=== PATIENT | male | born 1965 | race Two or more races ===

== ENCOUNTER → 2018-03-12 | Outpatient (CLI) | payer MEDICAID | END | disposition home or self-care (01) | LOC: Rad HDHVI 15:58 | PROVIDERS: ATTEND Internal Medicine Cardiovascular Disease | DX: I10 Essential (primary) hypertension (principal); R07.89 Other chest pain; E78.5 Hyperlipidemia, unspecified | CPT/HCPCS: 93306 ==

== ENCOUNTER → 2018-04-29 | Outpatient (CLI) | payer MEDICAID ==
[2018-04-29 10:00] VITALS: BP 110/65
[2018-04-29 10:22] VITALS: BP 123/78
--- NOTE | 2018-04-29 10:22 | NUR ---
PRE-OP BIV AICD FOR 05/01/18 Pre-Op Discharge Summary: See e-MAR for any medications given for this visit. Pre-op orders received and carried out per MD of EKG, LABS. Patient given a copy of EKG with instructions to go to [facility] out patient for CXR AND further follow up care.
[2018-04-29 12:01] LABS: Basophils # (auto) 0 uL; Basophils % (auto) 0.5 % (0.0-2.0); Eosinophils # (auto) 0 uL; Hematocrit 43.7 % (41.0-53.0); Hemoglobin 14.7 g/dL (13.5-17.5); Lymphocytes # (auto) 1.1 uL; Lymphocytes % (auto) 22.1 % (10.0-50.0); Mean Corpuscular Hemoglobin 28.7 pg (28.0-32.0); Mean Corpuscular Hgb Conc. 33.5 g/dL (32.0-36.0); Mean Corpuscular Volume 85.6 fL (80.0-100.0); Monocytes # (auto) 0.3 uL; Monocytes % (auto) 5.5 % (0.0-12.0); Neutrophils # (auto) 3.6 uL; Neutrophils % (auto) 70.9 % (37.0-80.0); Nucleated Red Blood Cells % 0.5 %; Platelet Count (auto) 216 10^3/uL (140-450); Red Blood Cells 5.11 10^6/uL (4.5-5.90); Red Cell Distribution Width 13.7 % (11.8-14.3); White Blood Cell 5.1 10^3/uL (4.4-10.8)
[2018-04-29 12:15] LABS: INR 0.93 (0.9-1.15); Partial Thromboplastin Time 30.5 sec (23.78-33.04)
[2018-04-29 12:17] LABS: Potassium 4.3 mmol/L (3.5-5.1)
[2018-04-29 12:22] LABS: BUN/Creatinine Ratio 21.8
== END | disposition home or self-care (01) ==
LOC: CHF HDHVI 09:42
PROVIDERS: ATTEND Internal Medicine Cardiovascular Disease
DX: Z01.818 Encounter for other preprocedural examination (principal); D64.9 Anemia, unspecified; R79.1 Abnormal coagulation profile; R94.31 Abnormal electrocardiogram [ECG] [EKG]; I11.0 Hypertensive heart disease with heart failure; I50.9 Heart failure, unspecified; I42.0 Dilated cardiomyopathy
CPT/HCPCS: 36415; 80048; 85025; 85610; 85730; 93005; G0463

== ENCOUNTER → 2018-04-30 | Outpatient (CLI) | payer MEDICAID ==
[2018-04-30 14:20] VITALS: BP 109/63
--- NOTE | 2018-04-30 14:20 | NUR ---
Pre-Op Discharge Summary: [facility] FOR SCHEDULED PROCEDURE OF BIV-AICD. PT VERBALIZED UNDERSTANDING
--- NOTE | 2018-04-30 14:20 | NUR ---
[facility] TO [facility]CUSS HIS UPCOMING PROCDURE ON 05/01/18 FOR A BI-VENT AICD. PT EXPRESSED CONCERN ABOUT THE PROCEDURE BECAUSE HE HAS NICHOLAS A COUGH FOR DAYS THAT HE THINKS IS VIRAL. DISCUSSED THE PATIENTS PLAN OF CARE AND CONCERNS. PT DECIDED TO RESCHEDULE FOR 05/15/18.
== END | disposition home or self-care (01) ==
LOC: CHF HDHVI 15:10
PROVIDERS: ATTEND Internal Medicine Cardiovascular Disease
DX: Z01.818 Encounter for other preprocedural examination (principal)
CPT/HCPCS: G0463

== ENCOUNTER 2018-07-27 13:20 | Inpatient (IN) | payer SELFPAY, MEDICAID | END 2018-08-02 14:20 | disposition home or self-care (01) | LOC: ER 13:20 → TELE-CENTR 07-28 09:26 → TELE 21:02 ==

== ENCOUNTER → 2018-09-22 | Outpatient (CLI) | payer MEDICAID ==
[~2018-09-22] MED LIST: ASPI81CH43 PO; ATOR1TAB PO; FURO1TAB33 PO; METO25TA5 PO; SACU1TAB PO
== END | disposition home or self-care (01) ==
LOC: Rad HDHVI 14:54
PROVIDERS: ATTEND Internal Medicine Cardiovascular Disease
DX: I34.0 Nonrheumatic mitral (valve) insufficiency (principal); I42.0 Dilated cardiomyopathy
CPT/HCPCS: 93306

== ENCOUNTER → 2019-04-27 | Outpatient (CLI) | payer MEDICAID | END | disposition home or self-care (01) | LOC: Rad HDHVI 11:39 | PROVIDERS: ATTEND Internal Medicine Cardiovascular Disease | DX: I50.43 Acute on chronic combined systolic (congestive) and diastolic (congestive) heart failure (principal); I51.7 Cardiomegaly; J44.9 Chronic obstructive pulmonary disease, unspecified | CPT/HCPCS: 93306 ==

== ENCOUNTER → 2019-06-26 | Outpatient (CLI) | payer MEDICAID | END | disposition home or self-care (01) | LOC: Rad HDHVI 11:17 | PROVIDERS: ATTEND Internal Medicine Cardiovascular Disease | DX: J34.2 Deviated nasal septum (principal) | CPT/HCPCS: 70486 ==

== ENCOUNTER → 2020-03-18 | Outpatient (CLI) | payer MEDICAID ==
[~2020-03-18] MED LIST changes: +ATOR-47 PO; -ATOR1TAB PO
== END | disposition home or self-care (01) ==
LOC: Rad HDHVI 15:03
PROVIDERS: ATTEND Internal Medicine Cardiovascular Disease
DX: I50.43 Acute on chronic combined systolic (congestive) and diastolic (congestive) heart failure (principal); I42.0 Dilated cardiomyopathy
CPT/HCPCS: 93306

== ENCOUNTER 2020-10-01 11:32 | Inpatient (IN) | payer MEDICAID ==
[~2020-10-01] VITALS: Ht 170.2 cm; Wt 69.0 kg
[2020-10-01] MEDS ORDERED: SODIUM CHLORIDE 0.9% 1,000 ML IV ONE (13:00)
[2020-10-01 13:25] LABS: Basophils # (auto) 0 10 ^3/uL (0-0.2); Basophils % (auto) 0.3 % (0.0-2.0); Eosinophils # (auto) 0 10 ^3/uL (0-0.8); Eosinophils % (auto) 0.2 % (0.0-7.0); Hematocrit 41.4 % (41.0-53.0); Hemoglobin 14.2 g/dL (13.5-17.5); Lymphocytes % (auto) 14.5 % (10.0-50.0); Mean Corpuscular Hemoglobin 28.7 pg (28.0-32.0); Mean Corpuscular Hgb Conc. 34.4 g/dL (32.0-36.0); Mean Corpuscular Volume 83.5 fL (80.0-100.0); Monocytes # (auto) 0.4 10 ^3/uL (0-1.3); Monocytes % (auto) 5.6 % (0.0-12.0); Neutrophils # (auto) 5.6 10 ^3/uL (1.6-8.6); Neutrophils % (auto) 79.4 % (37.0-80.0); Red Blood Cells 4.96 10^6/uL (4.5-5.90); Red Cell Distribution Width 13.9 % (11.8-14.3)
[2020-10-01 13:42] LABS: Albumin 4.3 g/dL (3.4-5.0); Calcium 8.9 mg/dL (8.5-10.1); Magnesium 2.7 mg/dL (1.6-2.6); Potassium 4.3 mmol/L (3.5-5.1)
[2020-10-01 13:50] LABS: BUN/Creatinine Ratio 17.1; Bilirubin, Total 0.6 mg/dL (0.2-1.0); Total Protein 7.7 g/dL (6.4-8.2)
[2020-10-01 13:58] LABS: Urine Bacteria NONE SEEN /hpf (None Seen); Urine Blood Negative /uL (Negative); Urine Specific Gravity 1.016 (1.001-1.035); Urine WBC <1 /hpf (0 - 3)
[2020-10-01 16:23] LABS: INR 0.99 (0.9-1.15); Partial Thromboplastin Time 27.1 sec (23.6-33.0)
[2020-10-01] MEDS ORDERED: MORPHINE SULFATE INJECTION 2 MG/2 ML SYRG IV PRN (16:45)
[2020-10-01] MEDS ORDERED: NITROGLYCERIN 0.4 MG SL TAB SL PRN (16:45)
[2020-10-01] MEDS: METOPROLOL TARTRATE 25 MG TAB PO SCH (23:46)
[2020-10-01] MEDS: FAMOTIDINE 20 MG TAB PO SCH (23:46)
[2020-10-02] VITALS (8 sets, daily range): BP systolic 89–124; BP diastolic 54–72
[2020-10-02] MEDS ORDERED: NICOTINE 21MG/24 HR TOPICAL PATCH TD ONE
[2020-10-02] MEDS: ACETAMINOPHEN 325 MG TAB PO PRN ×3 (00:11→22:52)
[2020-10-02] MEDS: SACUBITRIL-VALSARTAN 24mg/26mg TAB PO SCH (10:05)
[2020-10-02] MEDS: ASPirin 81 mg TAB PO SCH (10:05)
[2020-10-02] MEDS: METOPROLOL TARTRATE 25 MG TAB PO SCH ×2 (10:06→22:00)
[2020-10-02] MEDS: FAMOTIDINE 20 MG TAB PO SCH ×2 (10:06→22:48)
[2020-10-02] MEDS: NICOTINE 21MG/24 HR TOPICAL PATCH TD SCH (10:07)
[2020-10-02] MEDS: CLOPIDOGREL BISULFATE 75 MG TAB PO SCH (10:07)
[2020-10-03] VITALS (9 sets, daily range): BP systolic 101–145; BP diastolic 68–89
[2020-10-03] MEDS: ACETAMINOPHEN 325 MG TAB PO PRN (09:14)
[2020-10-03] MEDS: ASPirin 81 mg TAB PO SCH (09:14)
[2020-10-03] MEDS: SACUBITRIL-VALSARTAN 24mg/26mg TAB PO SCH (09:14)
[2020-10-03] MEDS: CLOPIDOGREL BISULFATE 75 MG TAB PO SCH (09:14)
[2020-10-03] MEDS: FAMOTIDINE 20 MG TAB PO SCH (09:15)
[2020-10-03] MEDS: METOPROLOL TARTRATE 25 MG TAB PO SCH (09:15)
[2020-10-03] MEDS: NICOTINE 21MG/24 HR TOPICAL PATCH TD SCH (09:16)
[2020-10-03] MEDS ORDERED: ANGIOMAX 250 MG VIAL IV ONE (14:54)
[2020-10-03] MEDS ORDERED: LIDOCAINE 2%HCL (LOCAL ANESTH.) INJ 20ML MDV ONE ×2 (14:55→15:24)
[2020-10-03] MEDS ORDERED: SODIUM CHL 0.9% 0 ML ONE (14:55)
[2020-10-03] MEDS ORDERED: MIDAZOLAM HCL 2MG/2ML 2ml VIAL (1mg/ml) ONE (14:55)
[2020-10-03] MEDS ORDERED: IOHEXOL 350 MG/ML 100ML IJ ONE (14:55)
[2020-10-03] MEDS ORDERED: fentaNYL CITRATE 100 MCG/2 ML VL ONE (14:55)
== END 2020-10-03 19:51 | disposition home or self-care (01) | DRG 192 ==
LOC: ER 11:32 → TELE 16:41 → TELE-WESTW 22:40
PROVIDERS: ADMIT Internal Medicine Cardiovascular Disease; ATTEND Internal Medicine Cardiovascular Disease
PROC: B2161ZZ Fluoroscopy of Right and Left Heart using Low Osmolar Contrast (ICD-10-PCS; principal; 2020-10-03)
PROC: B2111ZZ Fluoroscopy of Multiple Coronary Arteries using Low Osmolar Contrast (ICD-10-PCS; 2020-10-03)
DX: R07.89 Other chest pain (principal); I42.0 Dilated cardiomyopathy; I50.42 Chronic combined systolic (congestive) and diastolic (congestive) heart failure; Z20.822 Contact with and (suspected) exposure to COVID-19; F17.210 Nicotine dependence, cigarettes, uncomplicated; Z95.810 Presence of automatic (implantable) cardiac defibrillator; I25.2 Old myocardial infarction
CPT/HCPCS: 36415; 71046; 80053; 81001; 83735; 83880; 84443; 84484; 85025; 85379; 85610; 85730; 87426; 93005; 93458; 96360; 99152; G0378; J2250

== ENCOUNTER → 2020-11-28 | Outpatient (CLI) | payer MEDICAID | END | disposition home or self-care (01) | LOC: Rad HDHVI 15:58 | PROVIDERS: ATTEND Internal Medicine Cardiovascular Disease | DX: I51.7 Cardiomegaly (principal); R07.89 Other chest pain | CPT/HCPCS: 93306 ==

== ENCOUNTER → 2021-10-18 | Outpatient (CLI) | payer MEDICARE, MEDICAID | END | disposition home or self-care (01) | LOC: Rad HDHVI 09:07 | PROVIDERS: ATTEND Internal Medicine Cardiovascular Disease | DX: R07.89 Other chest pain (principal); E78.5 Hyperlipidemia, unspecified | CPT/HCPCS: 93306 ==

== ENCOUNTER → 2022-02-21 | Outpatient (CLI) | payer MEDICARE, MEDICAID ==
[2022-02-21 16:06] LABS: Urine Blood Negative /uL (Negative); Urine Specific Gravity 1.009 (1.001-1.035)
[2022-02-21 16:15] LABS: Basophils # (auto) 0 10 ^3/uL (0-0.2); Basophils % (auto) 0.4 % (0.0-2.0); Eosinophils # (auto) 0 10 ^3/uL (0-0.8); Eosinophils % (auto) 0.5 % (0.0-7.0); Hematocrit 43.6 % (41.0-53.0); Hemoglobin 14.8 g/dL (13.5-17.5); Lymphocytes # (auto) 1.4 10 ^3/uL (0.4-5.4); Lymphocytes % (auto) 21.2 % (10.0-50.0); Mean Corpuscular Hemoglobin 28.6 pg (28.0-32.0); Mean Corpuscular Volume 84.2 fL (80.0-100.0); Monocytes # (auto) 0.4 10 ^3/uL (0-1.3); Monocytes % (auto) 6.1 % (0.0-12.0); Neutrophils # (auto) 4.8 10 ^3/uL (1.6-8.6); Neutrophils % (auto) 71.8 % (37.0-80.0); Nucleated Red Blood Cells % 0.4 %; Red Blood Cells 5.19 10^6/uL (4.5-5.90); Red Cell Distribution Width 14.2 % (11.8-14.3); White Blood Cell 6.7 10^3/uL (4.4-10.8)
[2022-02-21 16:19] LABS: Albumin 4.8 g/dL (3.4-5.0); Calcium 9.2 mg/dL (8.5-10.1)
[2022-02-21 16:25] LABS: BUN/Creatinine Ratio 16.7; Bilirubin, Direct 0.1 mg/dL (0-0.2); Bilirubin, Total 0.6 mg/dL (0.2-1.0); Phosphorus 3.2 mg/dL (2.5-4.90); Total Protein 7.6 g/dL (6.4-8.2)
== END | disposition home or self-care (01) ==
LOC: LAB 11:41
PROVIDERS: ATTEND Internal Medicine Cardiovascular Disease
DX: I10 Essential (primary) hypertension (principal); E55.9 Vitamin D deficiency, unspecified
CPT/HCPCS: 36415; 80061; 80069; 80076; 81003; 82306; 83036; 84153; 84403; 85025

== ENCOUNTER → 2022-11-16 | Outpatient (CLI) | payer MEDICARE, MEDICAID | END | disposition home or self-care (01) | LOC: Rad HDHVI 11:10 | PROVIDERS: ATTEND Internal Medicine Cardiovascular Disease | DX: I08.1 Rheumatic disorders of both mitral and tricuspid valves (principal); R07.9 Chest pain, unspecified; I11.9 Hypertensive heart disease without heart failure | CPT/HCPCS: 93306 ==